=== PATIENT | female | born 1960 | race Caucasian/White ===

== ENCOUNTER 2019-07-28 09:40 | Outpatient (CLI) | payer OTHER ==
--- NOTE | 2019-07-28 10:19 | RAD ---
RIGHT KNEE 4 VIEWS: HISTORY: Knee pain. FINDINGS: Joint spaces appear normal. No evidence of fracture or acute osseous abnormality. Minimal spurring from the posterior patella. No joint effusion. IMPRESSION: Unremarkable right knee. POS: [facility]
== END 2019-07-28 09:41 | disposition home or self-care (01) ==
LOC: SCSRAD 09:40
PROVIDERS: ATTEND Nurse Practitioner Family
DX: M25.561 Pain in right knee (principal)

== ENCOUNTER 2019-12-09 06:19 | Day surgery (SDC) | payer OTHER ==
--- NOTE | 2019-12-08 09:57 | HP ---
HISTORY OF PRESENT ILLNESS: The patient is a 59-year-old female with a several month history of pain and popping in her right knee after bending down to grab a pot on the low cabinet. She has had persistent symptoms despite rest, restriction of activities, anti-inflammatory medication, and previous cortisone injection. Pain has started interfering with day-to-day activities. PAST MEDICAL HISTORY: The patient is otherwise in good health. She has history of thyroid replacement and hormone replacement. She has had a previous partial hysterectomy, appendectomy, , squamous cell carcinoma of right forearm, and a basal cell carcinoma of her nose, neck, and shoulder. CURRENT MEDICATIONS: Include, 1. Liothyronine. 2. Levothyroxine. 3. Estradiol. 4. Ibuprofen. 5. P.r.n. tramadol. ALLERGIES: SHE HAS NO KNOWN ALLERGIES. FAMILY HISTORY: Otherwise unremarkable. SOCIAL HISTORY: Otherwise unremarkable. REVIEW OF SYSTEMS: Otherwise unremarkable. 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 PHYSICAL EXAMINATION: GENERAL: Reveals a healthy female. HEENT: Unremarkable. NECK: Supple. CHEST: Clear. HEART: Regular rate and rhythm. ABDOMEN: Soft, nontender. PELVIC: Deferred. RECTAL: Deferred. BREASTS: Deferred. EXTREMITIES: Pertinent findings of the right knee, there is puffiness. No definite effusion. There is normal alignment. There is tenderness over the medial joint line and pain with Sobeida's maneuver. Range of motion 0 to 125 degrees. There is pain with further flexion. There is a trace valgus laxity at 30 degrees of flexion. No other instability. NEUROVASCULAR: Intact. There is a slight right antalgic gait. IMAGING STUDIES: X-rays of the right knee are normal. MRI scan of the right knee reveals slight effusion. There is mild DJD of the patella and a probable grade 3 signal in the medial meniscus suspicious for nondisplaced tear. IMPRESSION: Internal derangement of right knee with probable medial meniscal tear, possible component of DJD. Plan is arthroscopy right knee with partial medial meniscectomy and/or debridement and shaving. The nature of the surgery, length of recovery, and potential complications such as infection, loss of motion, incomplete relief, thromboembolic phenomenon, neurovascular injury, posttraumatic degenerative arthritis, recurrent tear, need for additional treatment, and repeat surgery have been discussed in detail. Job ID: [id number]
[2019-12-08 10:42] VITALS: BMI 38.8
[2019-12-09 06:47] LABS: #Basophils 0.2 thou/uL (0.0-0.2); #Eosinphils 0.1 thou/uL (0.0-0.7); #Lymphocytes 2.9 thou/uL (1.20-3.40); #Monocytes 0.4 thou/uL (0.11-0.59); #Neutrophils 3.8 thou/uL (1.40-6.50); %Basophils 2.2 % (0.0-1.0); %Eosinophils 1.7 % (0.0-10.0); %Lymphocytes 39.8 % (21.0-51.0); %Monocytes 4.9 % (0.0-10.0); %Neutrophils 51.4 % (42.0-75.0); Hemoglobin 13.4 g/dL (12.0-16.0); Mean Corpuscular HGB CONC 33.7 g/dL (32.0-36.0); Mean Corpuscular Hemoglobin 30.8 pg (27.0-31.0); Mean Corpuscular Volume 91.4 fL (78.0-98.0); Mean Platelet Volume 6.7 fL (7.4-10.4); Platelet Count 294 thou/uL (130-400); RBC Distribution Width 12.2 % (11.5-14.5); Red Blood Cell (RBC) Count 4.35 mill/uL (4.20-5.40); White Blood Cell (WBC) Count 7.4 thou/uL (4.8-10.8)
[2019-12-09] MEDS ORDERED: Bupivacaine 0.25% HCL 30 ML VIAL ONE (06:59)
[2019-12-09] MEDS ORDERED: Famotidine/PF 20 mg/2ml Vial ONE ×2 (07:00→07:01)
[2019-12-09] MEDS ORDERED: Midazolam HCl 2 mg/2 ml Vial ONE (07:00)
[2019-12-09 07:09] LABS: Anion Gap 13 mmol/L (10-20); BUN (Urea Nitrogen) 8 mg/dL (9.8-20.1); Calc. Creatinine Clearance 143 mL/min (70-130); Carbon Dioxide 23 mmol/L (22-29); Chloride 107 mmol/L (98-107); Estimated GFR-MDRD 77; Glucose 106 mg/dL (70-105); Potassium 4.1 mmol/L (3.5-5.1); Sodium 139 mmol/L (136-145)
[2019-12-09] MEDS ORDERED: Fentanyl 100 MCG/2 ML VIAL ONE ×3 (07:14→08:47)
[2019-12-09] MEDS ORDERED: Lidocaine 1% w/Epinephrine 1:100K 20 ML VIAL ONE (07:35)
[2019-12-09] MEDS ORDERED: Dexamethasone 20 MG/5 ML VIAL ONE (10:11)
[2019-12-09] MEDS ORDERED: Metoclopramide HCl 10 MG/2 ML VIAL ONE (10:11)
[2019-12-09] MEDS ORDERED: Ondansetron PF 4 MG/2 ML Vial ONE (10:11)
[2019-12-09] MEDS ORDERED: Lidocaine 1% PF 5 ML VIAL ONE (10:11)
[2019-12-09] MEDS ORDERED: Ketorolac Tromethamine 30 MG/ML VIAL ONE (10:11)
[2019-12-09] MEDS ORDERED: PROPOFOL 200 MG/20 ML VIAL ONE (10:11)
[2019-12-09] MEDS ORDERED: HYDROcodone/Acetaminophen 5/325 mg Tablet ONE (10:33)
--- NOTE | 2019-12-09 11:31 | OP ---
DATE OF PROCEDURE: 12/09/2019 PREOPERATIVE DIAGNOSIS: Medial meniscal tear, right knee. POSTOPERATIVE DIAGNOSES: Medial meniscal tear, lateral meniscal tear, and early degenerative joint disease, right knee. PROCEDURES PERFORMED: Arthroscopy of right knee with partial medial and lateral meniscectomies. ANESTHESIA: General. OPERATIVE FINDINGS: Examination under anesthesia revealed the knee to be stable. At arthroscopy, there was a large effusion. There was grade 1 and very early grade 2 chondromalacia of the patella, but no area needed shaving. There was mild synovitis. There was a complex tear of the posterior horn of the medial femoral condyle and an approximate 1 x 1 cm chondral defect of the weightbearing surface of the medial femoral condyle, which was not down to subchondral bone. ACL was intact. There was a small radial tear of the midportion of the lateral meniscus. The bulk of the meniscus was intact. DESCRIPTION OF PROCEDURE: After satisfactory anesthesia was induced in supine position, the patient was placed in a leg carrillo and then prepped and draped in routine manner. The right leg was elevated and exsanguinated with an Esmarch bandage and the tourniquet inflated to 350 mmHg. Di arthroscope was introduced through the anterolateral portal, probed through the anteromedial portal and inflow and outflow accomplished through the scope using a ePatientFinder arthroscopy pump. Arthroscopy was carried out and the above findings were noted. All findings were documented with the video printer. Hard copies were made. Posterior horn of the medial meniscus was debrided with basket forceps and motorized shaver and the posterior horn saucerized and then balanced and probed and found to be stable. There was still an intact rim with at least 3 to 4 mm. The defect in medial femoral condyle was debrided with motorized shaver. The lateral meniscal tear was debrided with the motorized shaver. The scope was then introduced into the anteromedial portal and all compartments were visualized and no additional pathology found. The knee was then copiously irrigated through the scope and all instruments were withdrawn. A mixture of 50% 1% lidocaine with epinephrine and 0.25% Marcaine plain, 30 mL was injected into the knee joint and additional 10 mL injected about the portal sites. Portal sites were closed with 3-0 nylon and a sterile bulky compressive dressing was applied and the tourniquet deflated after 19 minutes. The foot promptly pinked up. The patient was awakened and taken to the recovery room in stable condition. There were no apparent intraoperative complications. The estimated blood loss was negligible. The patient will be discharged home in satisfactory condition, instructed on ice and elevation, use of crutches, home exercise program by the Physical Therapy Department. She was given written wound care instructions and a prescription for [place] 7.5 for pain, 24 tablets. She will be rechecked in my office in approximately 1 week or sooner if there are any problems prior to that time. Job ID: [id number]
--- NOTE | 2019-12-09 12:31 | EKG ---
Test Reason : PREOP Blood Pressure : / mmHG Vent. Rate : 073 BPM Atrial Rate : 073 BPM P-R Int : 160 ms QRS Dur : 094 ms QT Int : 382 ms P-R-T Axes : 039 014 014 degrees QTc Int : 420 ms Normal sinus rhythm Normal ECG No previous ECGs available Confirmed by DR. Joann ZAMORA ([id number]) on 12/09/2019 12:31:03 PM Referred By: TEVIN Confirmed By:DR. Joann ZAMORA
[2019-12-09 14:18] VITALS: BP 166/85
== END 2019-12-09 11:50 | disposition home or self-care (01) ==
LOC: SDC 06:19
PROVIDERS: ATTEND Orthopaedic Surgery
PROC: 0SBC4ZZ Excision of Right Knee Joint, Percutaneous Endoscopic Approach (ICD-10-PCS; principal; 2019-12-09)
DX: S83.231A Complex tear of medial meniscus, current injury, right knee, initial encounter (principal); S83.281A Other tear of lateral meniscus, current injury, right knee, initial encounter; M22.41 Chondromalacia patellae, right knee; Z79.899 Other long term (current) drug therapy
CPT/HCPCS: 36415; 80048; 85025; 93005; 93010; J0690; J1100; J1885; J2001; J2250; J2405; J2704; J2765; J3010; S0020; S0028

== ENCOUNTER 2020-06-21 07:40 | Outpatient (CLI) | payer OTHER ==
[2020-06-21 11:27] LABS: #Basophils 0.1 thou/uL (0.0-0.2); #Eosinphils 0.1 thou/uL (0.0-0.7); #Lymphocytes 2.9 thou/uL (1.20-3.40); #Monocytes 0.3 thou/uL (0.11-0.59); #Neutrophils 2.6 thou/uL (1.40-6.50); %Basophils 0.9 % (0.0-1.0); %Lymphocytes 48.6 % (21.0-51.0); %Monocytes 4.5 % (0.0-10.0); %Neutrophils 43.9 % (42.0-75.0); Hemoglobin 13.3 g/dL (12.0-16.0); Mean Corpuscular HGB CONC 32.9 g/dL (32.0-36.0); Mean Corpuscular Hemoglobin 29.7 pg (27.0-31.0); Mean Corpuscular Volume 90.1 fL (78.0-98.0); Mean Platelet Volume 7.7 fL (7.4-10.4); Platelet Count 257 thou/uL (130-400); RBC Distribution Width 13.3 % (11.5-14.5); Red Blood Cell (RBC) Count 4.48 mill/uL (4.20-5.40)
[2020-06-21 12:05] LABS: Anion Gap 15 mmol/L (10-20); BUN (Urea Nitrogen) 10 mg/dL (9.8-20.1); Calc. Creatinine Clearance 0 mL/min (70-130); Calcium 8.8 mg/dL (7.8-10.44); Carbon Dioxide 22 mmol/L (22-29); Chloride 104 mmol/L (98-107); Estimated GFR-MDRD 82; Glucose 100 mg/dL (70-105); Potassium 4.4 mmol/L (3.5-5.1); Sodium 137 mmol/L (136-145)
[2020-06-21 18:04] LABS: SARS-CoV-2 MS2 Positive; SARS-CoV-2 N Gene Negative; SARS-CoV-2 S Gene Negative; SARS-CoV-2 by NAA Not Detected (NotDetected); SARS-CoV-2 orf1ab Negative
--- NOTE | 2020-06-22 20:51 | EKG ---
Test Reason : Blood Pressure : / mmHG Vent. Rate : 072 BPM Atrial Rate : 072 BPM P-R Int : 140 ms QRS Dur : 068 ms QT Int : 356 ms P-R-T Axes : 052 023 019 degrees QTc Int : 389 ms Normal sinus rhythm Low voltage QRS Borderline ECG No previous ECGs available Confirmed by Nazario GEE ([id number]) on 06/22/2020 8:50:53 PM Referred By: FRANKLYN Confirmed By:Nazario GEE
== END 2020-06-21 07:41 | disposition home or self-care (01) ==
LOC: LABBT 07:40
PROVIDERS: ATTEND Surgery
DX: Z01.818 Encounter for other preprocedural examination (principal); Z20.828 Contact with and (suspected) exposure to other viral communicable diseases; K43.9 Ventral hernia without obstruction or gangrene
CPT/HCPCS: 80048; 85025; 87635; 93005; 93010; U0003

== ENCOUNTER 2020-06-23 05:55 | Day surgery (SDC) | payer OTHER ==
[2020-06-21 12:50] VITALS: BMI 39.6
[2020-06-23] MEDS ORDERED: Lidocaine 1% w/Epinephrine 1:100K 20 ML VIAL ONE (06:37)
[2020-06-23] MEDS ORDERED: Bupivacaine 0.25% HCL 30 ML VIAL ONE (06:37)
[2020-06-23] MEDS ORDERED: Fentanyl 100 MCG/2 ML VIAL ONE ×3 (06:43→09:05)
[2020-06-23] MEDS ORDERED: SUGAMMADEX SODIUM 200 MG/2 ML VIAL ONE (06:54)
[2020-06-23] MEDS ORDERED: Scopolamine 1.5 mg/72 hour Patch ONE (07:02)
--- NOTE | 2020-06-23 09:23 | OP ---
DATE OF PROCEDURE: 06/23/2020 PREOPERATIVE DIAGNOSIS: Ventral hernia. POSTOPERATIVE DIAGNOSIS: Ventral hernia. PROCEDURE PERFORMED: Da Anastasiya laparoscopic ventral hernia repair with mesh, 8 cm, Ventralex ST. ANESTHESIA: General. ESTIMATED BLOOD LOSS: Minimal. COMPLICATIONS: None. SPECIMEN: None. FINDINGS: Ventral hernia. TECHNIQUE: The patient was taken to the operating room and laid supine on the operating room table. After general anesthetic was obtained, the abdomen was prepped and draped in a sterile fashion. Left subcostal 5-mm Optiview trocar placed in usual fashion and high-flow pneumoperitoneum was obtained. Left and right subcostal 8-mm robot trocars were placed. The 5-mm subcostal port switched out to a 10-balloon port. All ports were docked to the robot. Surgeon goes to the console. There was a large defect in the upper midline of abdomen. The peritoneum was taken down exposing the posterior fascia. The preperitoneal fat was dissected out of the hernia. There was a 2nd small umbilical hernia just below this, although the preperitoneal fat was able to be reduced out of the hernia. The hernia defect was closed using running 0 V-Loc suture. This was also used to run down and close the umbilical defect. The Ventralex ST mesh 8 cm [place] was brought into the sterile field, placed in the abdomen. Then, the exposed mesh was placed up against the posterior fascia, nonadherent barrier put to left down against the abdominal viscera. This was sewn via 2-0 V-Loc to the posterior fascia. All needles were removed from the abdomen and accounted for. The mesh did cover the umbilical defect area as well. All port sites were infiltrated using local anesthetic. All ports were removed under camera visualization. Pneumoperitoneum was let down. All incisions were closed using 4-0 Monocryl and Dermabond. The patient was sent to Recovery in stable condition. All instrument counts, needle counts, and lap counts were correct. Job ID: [id number]
[2020-06-23] MEDS ORDERED: HYDROcodone/Acetaminophen 5/325 mg Tablet ONE (09:51)
[2020-06-23] MEDS ORDERED: Labetalol HCl 100 MG/20 ML VIAL ONE (13:07)
[2020-06-23] MEDS ORDERED: Ketorolac Tromethamine 30 MG/ML VIAL ONE (13:07)
[2020-06-23] MEDS ORDERED: Dexamethasone 20 MG/5 ML VIAL ONE (13:07)
[2020-06-23] MEDS ORDERED: diphenhydrAMINE 50 MG/ML VIAL ONE (13:07)
[2020-06-23] MEDS ORDERED: PROPOFOL 200 MG/20 ML VIAL ONE (13:07)
[2020-06-23] MEDS ORDERED: Rocuronium Bromide 10 MG/ML (10ML VIAL) ONE (13:07)
[2020-06-23] MEDS ORDERED: Ondansetron PF 4 MG/2 ML Vial ONE (13:07)
[2020-06-23] MEDS ORDERED: Lidocaine 1% PF 5 ML VIAL ONE (13:07)
== END 2020-06-23 10:45 | disposition home or self-care (01) ==
LOC: SDC 05:55
PROVIDERS: ATTEND Surgery
PROC: 0WUF4JZ Supplement Abdominal Wall with Synthetic Substitute, Percutaneous Endoscopic Approach (ICD-10-PCS; principal; 2020-06-23)
PROC: 0WQF4ZZ Repair Abdominal Wall, Percutaneous Endoscopic Approach (ICD-10-PCS; principal; 2020-06-23)
DX: K43.9 Ventral hernia without obstruction or gangrene (principal); K42.9 Umbilical hernia without obstruction or gangrene; E03.9 Hypothyroidism, unspecified; Z79.899 Other long term (current) drug therapy
CPT/HCPCS: C1781; J0690; J1100; J1200; J1885; J2405; J2704; J3010; S0020

== ENCOUNTER 2022-05-25 09:04 | Outpatient (CLI) | payer OTHER ==
[2022-05-25 10:39] LABS: Anion Gap 14 mmol/L (10-20); BUN (Urea Nitrogen) 11 mg/dL (9.8-20.1); Calc. Creatinine Clearance 0 mL/min (70-130); Carbon Dioxide 25 mmol/L (22-29); Chloride 104 mmol/L (98-107); Estimated GFR 92; Glucose 106 mg/dL (70-105); Potassium 4.1 mmol/L (3.5-5.1); Sodium 139 mmol/L (136-145)
== END 2022-05-25 09:05 | disposition home or self-care (01) ==
LOC: LABBT 09:04
PROVIDERS: ATTEND Orthopaedic Surgery
DX: Z01.818 Encounter for other preprocedural examination (principal); M17.12 Unilateral primary osteoarthritis, left knee
CPT/HCPCS: 71046; 80048

== ENCOUNTER 2022-05-28 05:31 | Observation (INO) | payer OTHER ==
[2022-05-25 10:23] LABS: Bilirubin Neg (Negative); Blood, Urine Negative (Negative); Clarity Clear (Clear); Glucose, Urine (Dipstick) Normal (Negative); Ketone, Urine Negative (Negative); Leukocyte Negative (Negative); Nitrite Negative (Negative); Protein, Urine (Dipstick) Negative (Neg-Trace); Urobilinogen Normal mg/dL (Less than 2)
[2022-05-25 10:38] LABS: #Eosinphils 0.1 10x3/uL (0.0-0.5); #Monocytes 0.4 10x3/uL (0.0-1.1); #Neutrophils 3.4 10x3/uL (1.5-8.4); %Basophils 0.6 % (0.0-2.0); %Eosinophils 1.5 % (0.0-6.0); %Lymphocytes 44.6 % (18.0-47.0); %Monocytes 5.4 % (0.0-10.0); %Neutrophils 47.6 % (40.0-75.0); Hemoglobin 13.4 g/dL (12.0-15.5); Mean Corpuscular Hemoglobin 30.9 pg (27.0-33.0); Mean Corpuscular Volume 90.8 fl (81.6-98.3); Mean Platelet Volume 9.6 fl (7.4-10.4); Platelet Count 298 10x3/uL (150-450); RBC Distribution Width 13.2 % (11.5-14.5); Red Blood Cell (RBC) Count 4.34 10x6/uL (3.90-5.03); White Blood Cell (WBC) Count 7.2 10x3/uL (3.5-10.5)
[2022-05-25 10:52] LABS: INR-International Normal Ratio 0.9; Prothrombin Time 9.5 sec (9.5-12.1)
[2022-05-28] MEDS ORDERED: Tranexamic Acid 1,000 MG/10 ML VIAL ONE ×2 (06:11→09:35)
[2022-05-28] MEDS ORDERED: Vancomycin (BATCH) 1.5 GRAM/300 ML BAG ONE (06:11)
[2022-05-28] MEDS ORDERED: Sodium Chloride 0.9% 100 ML ONE ×2 (06:12→07:01)
[2022-05-28] MEDS ORDERED: Bupivacaine PF 0.5% 30 ML VIAL ONE (06:25)
[2022-05-28] MEDS ORDERED: Midazolam HCl 2 mg/2 ml Vial ONE ×2 (06:33→06:38)
[2022-05-28] MEDS ORDERED: Fentanyl 100 MCG/2 ML VIAL ONE ×5 (06:33→15:25)
[2022-05-28] MEDS ORDERED: Scopolamine 1.5 mg/72 hour Patch ONE (06:49)
[2022-05-28] MEDS ORDERED: Ondansetron PF 4 MG/2 ML Vial ONE ×2 (06:52→07:00)
[2022-05-28] MEDS ORDERED: PROPOFOL 200 MG/20 ML VIAL ONE (07:00)
[2022-05-28] MEDS ORDERED: Metoclopramide HCl 10 MG/2 ML VIAL ONE (07:00)
[2022-05-28] MEDS ORDERED: Bupivacaine HCl 0.5%/Epinephrine 1:200,000/PF 30 ml Vial ONE (07:00)
[2022-05-28] MEDS ORDERED: Ketorolac Tromethamine 30 MG/ML VIAL ONE (07:00)
[2022-05-28] MEDS ORDERED: Lidocaine 1% PF 5 ML VIAL ONE (07:00)
[2022-05-28] MEDS ORDERED: Dexamethasone 20 MG/5 ML VIAL ONE (07:00)
[2022-05-28] MEDS ORDERED: CEFAZOLIN 2 GM VIAL ONE (07:01)
[2022-05-28] MEDS ORDERED: traMADol HCl 50 MG TAB PO PRN ×3 (07:38→08:15)
[2022-05-28] MEDS ORDERED: Ondansetron PF 4 MG/2 ML Vial IVP PRN ×2 (07:38→08:15)
[2022-05-28] MEDS ORDERED: diphenhydrAMINE 25 MG CAP PO PRN (07:38)
[2022-05-28] MEDS ORDERED: HYDROcodone/Acetaminophen 10/325 mg Tablet PO PRN ×3 (07:38→08:15)
[2022-05-28] MEDS ORDERED: Promethazine HCl 25 MG/ML VIAL IM PRN ×2 (07:38→08:15)
[2022-05-28] MEDS ORDERED: Fentanyl 100 MCG/2 ML VIAL SLOW IVP PRN ×2 (07:38→08:03)
[2022-05-28] MEDS ORDERED: Acetaminophen 325 MG TAB PO PRN (07:38)
[2022-05-28] MEDS ORDERED: Zolpidem Tartrate 5 MG TAB PO PRN ×2 (07:38→08:15)
[2022-05-28] MEDS ORDERED: fentaNYL Citrate/PF 100 MCG/2 ML SYRINGE ONE (08:15)
[2022-05-28] MEDS ORDERED: Ropivacaine 0.2% 550 ML 550 ML NERVE BLCK SCH (08:15)
[2022-05-28] MEDS ORDERED: hydrALAZINE 20 MG/ML VIAL ONE (10:41)
[2022-05-28] MEDS ORDERED: Ketorolac Tromethamine 30 MG/ML VIAL IVP SCH (14:00)
[2022-05-28] MEDS: Sodium Chloride 0.9% 1,000 ML IV SCH ×2 (17:41→18:05)
[2022-05-28] MEDS: Aspirin 81 mg Enteric Coated Tablet PO SCH ×2 (17:41→21:01)
[2022-05-28] MEDS: Estradiol 1 MG TAB PO SCH (17:41)
[2022-05-28] MEDS: Ketorolac Tromethamine 30 MG/ML VIAL IVP SCH ×3 (17:42→23:20)
[2022-05-28] MEDS: Hydrochlorothiazide 25 MG TAB PO SCH (17:42)
[2022-05-28 17:43] VITALS: BMI 37.8
[2022-05-28] MEDS: CEFAZOLIN 2 GM in Sodium Chloride 0.9% 100 ML IVPB SCH ×2 (18:05→23:20)
[2022-05-28] MEDS ORDERED: Vancomycin 1.5 GRAM/300 ML BAG 1.5 GM in Premix Bag 1 BAG IVPB SCH (20:00)
[2022-05-28] MEDS: HYDROcodone/Acetaminophen 10/325 mg Tablet PO PRN (21:01)
[2022-05-29] MEDS: Sodium Chloride 0.9% 1,000 ML IV SCH ×2 (04:46→13:27)
[2022-05-29] MEDS: Ketorolac Tromethamine 30 MG/ML VIAL IVP SCH ×2 (05:35→12:23)
[2022-05-29 05:47] LABS: Mean Corpuscular HGB CONC 32.6 g/dL (32.0-36.0); Mean Corpuscular Hemoglobin 30.6 pg (27.0-31.0); Mean Platelet Volume 7.1 fL (7.4-10.4); Platelet Count 249 thou/uL (130-400); RBC Distribution Width 12.5 % (11.5-14.5); Red Blood Cell (RBC) Count 3.59 mill/uL (4.20-5.40); White Blood Cell (WBC) Count 11.1 thou/uL (4.8-10.8)
[2022-05-29] MEDS ORDERED: Levothyroxine Sodium 125 MCG TAB PO SCH (06:00)
[2022-05-29] MEDS ORDERED: Ferrous Gluconate 324 MG TAB PO SCH (08:00)
[2022-05-29] MEDS: Aspirin 81 mg Enteric Coated Tablet PO SCH (08:48)
[2022-05-29] MEDS: Estradiol 1 MG TAB PO SCH (08:49)
[2022-05-29] MEDS: HYDROcodone/Acetaminophen 10/325 mg Tablet PO PRN (08:49)
[2022-05-29] MEDS: Hydrochlorothiazide 25 MG TAB PO SCH (08:49)
[2022-05-29] MEDS ORDERED: Multivitamin W/ Minerals 1 TAB PO SCH (09:00)
[2022-05-29] MEDS ORDERED: Senokot S 8.6-50 MG TAB PO SCH (09:00)
[2022-05-29 15:58] VITALS: BP 119/77; TEMP 98.1
== END 2022-05-29 17:20 | disposition home or self-care (01) ==
LOC: SDC 05:31 → EDSTATUS 09:00 → SURG B 17:17
PROVIDERS: ADMIT Orthopaedic Surgery; ATTEND Orthopaedic Surgery
PROC: 0SRD0J9 Replacement of Left Knee Joint with Synthetic Substitute, Cemented, Open Approach (ICD-10-PCS; principal; 2022-05-28)
PROC: 8E0YXBZ Computer Assisted Procedure of Lower Extremity (ICD-10-PCS; 2022-05-28)
PROC: 3E0T3BZ Introduction of Anesthetic Agent into Peripheral Nerves and Plexi, Percutaneous Approach (ICD-10-PCS; 2022-05-28)
DX: M17.12 Unilateral primary osteoarthritis, left knee (principal); E03.9 Hypothyroidism, unspecified; Z86.010 Personal history of colon polyps; Z79.1 Long term (current) use of non-steroidal anti-inflammatories (NSAID); Z79.890 Hormone replacement therapy; Z79.899 Other long term (current) drug therapy; Z20.822 Contact with and (suspected) exposure to COVID-19
CPT/HCPCS: 36415; 81003; 85025; 85027; 85610; 86850; 86900; 86901; 87081; 87811; A4306; C1713; C1776; J0360; J0690; J1100; J1885; J2250; J2405; J2704; J2765; J2795; J3010; J3370; J3490; J7050; S0020

== ENCOUNTER 2025-08-18 08:18 | Outpatient (CLI) | payer OTHER | END 2025-08-18 08:19 | disposition home or self-care (01) | LOC: SCSMRI 08:18 | PROVIDERS: ATTEND Orthopaedic Surgery | DX: M23.91 Unspecified internal derangement of right knee (principal); S83.241A Other tear of medial meniscus, current injury, right knee, initial encounter; M94.261 Chondromalacia, right knee ==